=== PATIENT | male | born 1940 | race Caucasian/White ===

== ENCOUNTER 2016-09-30 09:08 | Outpatient (CLI) | payer MEDICARE ==
[~2016-09-30] VITALS: Ht 183 cm; Wt 102.7 kg
[2016-09-30] MEDS ORDERED: COUMADIN 3MG3 MG/TAB PO (09:25)
[2016-09-30] MEDS ORDERED: COLACE 100100 MG/CAP PO (09:26)
[2016-09-30] MEDS ORDERED: LIPITOR 80MG80 MG PO (09:26)
[2016-09-30] MEDS ORDERED: COENZYME Q-10100 M1 PO (09:27)
[2016-09-30 10:07] LABS: HEMOGLOBIN 12.2 g/dl (13.5-18.0); MEAN CELL VOLUME 95 fl (80.0-100.0); MEAN CORPUSCULAR HEMOGLOBIN 31 pg (27.0-31.0); MEAN CORPUSCULAR HGB CONC 33 g/dl (33.0-37.0); MEAN PLATELET VOLUME 9.8 fl (7.4-10.4); PLATELET COUNT 186 K/mm3 (130-400); RED BLOOD COUNT 3.88 M/mm3 (4.20-5.60); REDCELL DISTRIBUTION WIDTH-CV 14.6 % (11.5-14.5); WHITE BLOOD COUNT 4.4 K/mm3 (4.8-10.8)
[2016-09-30 10:08] LABS: HEMATOCRIT 36.8 % (42.0-52.0)
[2016-09-30 10:10] LABS: PROTHROMBIN TIME 22.4 SECONDS (9.7-12.8)
[2016-09-30 10:15] VITALS: BP 130/79; PULSE 50; TEMP 97
[2016-09-30 10:31] LABS: CALCIUM 9.1 mg/dL (8.4-10.2); CREATININE, serum 1.19 mg/dL (0.66-1.25); POTASSIUM 3.8 mmol/L (3.4-5.0)
[2016-09-30 12:16] VITALS: BP 129/73; PULSE 50
[2016-09-30 12:45] VITALS: BP 128/67; PULSE 55
[2016-09-30 13:00] VITALS: BP 128/76; PULSE 54
[2016-09-30] MEDS ORDERED: CEPHALEXIN500 M1 PO (13:05)
[2016-09-30 13:45] VITALS: BP 140/90; PULSE 60; TEMP 96.9
== END 2016-09-30 14:30 | disposition home or self-care (01) ==
LOC: COL.RAD 09:08
PROVIDERS: Internal Medicine Cardiovascular Disease
DX: I08.0 Rheumatic disorders of both mitral and aortic valves (principal); R94.31 Abnormal electrocardiogram [ECG] [EKG]; I67.81 Acute cerebrovascular insufficiency
CPT/HCPCS: C1764; G9654; J2704